=== PATIENT | male | born 1955 | race Caucasian/White ===

== ENCOUNTER 2025-03-07 05:06 | Emergency (ER) | payer OTHER, MEDICAID ==
[2025-03-07] MEDS ORDERED: NOREPINEPHRINE 8 MG/250 ML-D5W 250 ML ONE (05:36)
[2025-03-07 05:48] LABS: ALT (SGPT) 10 U/L (Less than 45); AST (SGOT) 44 U/L (11-34); Albumin 4.1 g/dL (3.1-4.5); Alkaline Phosphatase 82 U/L (40-110); Anion Gap 33 mmol/L (10-20); BUN (Urea Nitrogen) 16 mg/dL (8.4-25.7); Bilirubin, Total 0.6 mg/dL (0.3-1.2); Calc. Creatinine Clearance 0 mL/min (70-130); Calcium 9.4 mg/dL (7.8-10.44); Carbon Dioxide 14 mmol/L (23-31); Chloride 101 mmol/L (98-107); Globulin 3.7 g/dL (2.4-3.5); Glucose 96 mg/dL (83-110); Potassium 3.7 mmol/L (3.5-5.1); Sodium 144 mmol/L (136-145)
[2025-03-07 05:58] LABS: #Basophils 0.1 thou/uL (0.0-0.2); #Eosinophils 0.1 thou/uL (0.0-0.7); #Lymphocytes 2.3 thou/uL (1.20-3.40); #Monocytes 0.7 thou/uL (0.11-0.59); #Neutrophils 4.1 thou/uL (1.40-6.50); %Basophils 1.8 % (0.0-1.0); %Eosinophils 0.9 % (0.0-10.0); %Lymphocytes 31.4 % (21.0-51.0); %Monocytes 9.8 % (0.0-10.0); %Neutrophils 56.2 % (42.0-75.0); Hematocrit 44.5 % (42.0-52.0); Hemoglobin 14.7 g/dL (14.0-18.0); Mean Corpuscular Hemoglobin 29.4 pg (27.0-31.0); Mean Corpuscular Volume 89.0 fl (78.0-98.0); Platelet Count 215 10x3/uL (130-400); Red Blood Cell (RBC) Count 5.00 mill/uL (4.70-6.10); White Blood Cell (WBC) Count 7.2 10x3/uL (4.8-10.8)
[2025-03-07 06:45] LABS: Critical Call Chem-Lactate @DR.0640
[2025-03-07 06:47] LABS: Troponin I 0.082 ng/mL (< 0.028)
[2025-03-07 06:53] LABS: Base Excess (BEa) POC ABG -10.4 mmol/L (-2.0 to +3.0); O2 Saturation (calc) POC ABG 98.7 % (94.0-98.0); pH (Arterial) 7.157 (7.35-7.45)
[2025-03-07 06:54] LABS: Hematocrit POC ABG 44 % (38-51); Hemoglobin POC ABG 15.0 g/dL (12.0-17.0)
[2025-03-07 06:55] LABS: Potassium POC ABG 3.3 mmol/L (3.5-4.5); Sodium POC ABG 141 mmol/L (138-146)
[2025-03-07 06:56] LABS: Calcium, Ionized 1.20 mmol/L (1.15-1.33); Chloride POC ABG 102 mmol/L (98-107)
[2025-03-07 07:04] LABS: Lipase 17 U/L (8-78)
[2025-03-07 07:05] LABS: Acetaminophen Less than 10 mcg/mL (Less than 10); Magnesium 2.3 mg/dL (1.6-2.6); Salicylate Less than 8.0 mg/dL (Less than 8.0)
[2025-03-07 07:06] LABS: INR-International Normal Ratio 1.3; Prothrombin Time 16.0 sec (12.0-14.7)
[2025-03-07 07:09] LABS: D-Dimer Test 0.67 mcg/mL (0.27-0.43)
[2025-03-07 07:33] LABS: Cocaine Metabolite Screen Negative (Negative); THC/Cannabinoid Screen Negative (Negative); Tricyclic Screen Negative (Negative)
[2025-03-07 07:53] LABS: Glucose, Urine (Dipstick) Negative (Negative); Leukocyte Negative (Negative); Protein, Urine (Dipstick) Negative (Neg-Trace); Specific Gravity, Urine 1.010 (1.005-1.030)
[2025-03-07 07:54] LABS: RBC/HPF 0-3 HPF (0-3)
[2025-03-07 07:55] LABS: Bacteria/HPF Rare-Few HPF (None Seen); CAUTI Indications for Culture Alt mental st,lethar; WBC/HPF 0-3 HPF (0-3)
[2025-03-07 07:56] LABS: Urine Culture Reflex No No
[2025-03-07] MEDS ORDERED: Iopamidol 370 76% 100 ML VIAL ONE (09:00)
[2025-03-07] MEDS ORDERED: Etomidate 40 MG (20 mL) VIAL ONE (09:00)
[2025-03-07] MEDS ORDERED: SUCCINYLCHOLINE/SOD CL,ISO/PF 200 MG/10 ML SYRINGE FS ONE (09:00)
== END 2025-03-07 07:30 | disposition short-term general hospital (02) ==
LOC: MADERS 05:06
DX: T65.91XA Toxic effect of unspecified substance, accidental (unintentional), initial encounter (principal); R41.82 Altered mental status, unspecified; E86.0 Dehydration; J96.90 Respiratory failure, unspecified, unspecified whether with hypoxia or hypercapnia; E87.20 Acidosis, unspecified; I11.0 Hypertensive heart disease with heart failure; I50.9 Heart failure, unspecified; J44.9 Chronic obstructive pulmonary disease, unspecified
CPT/HCPCS: 31500; 36556; 70450; 71045; 71275; 72125; 74177; 80306; 80307; 81001; 82330; 82435; 82550; 82803; 83605; 83690; 83735; 83880; 84132; 84295; 84484; 85014; 85379; 85610; 87040; 94760; 96365; 96375; 99285; J2060; J2704; J7030; 80053; 84443; 85025; Q9967